=== PATIENT | male | born 1960 | race Caucasian/White ===

== ENCOUNTER 2020-04-25 10:10 | Outpatient (CLI) | payer MEDICAID | END 2020-04-25 10:11 | disposition short-term general hospital (02) | LOC: EMS 10:10 | PROVIDERS: ATTEND Surgery | DX: R07.89 Other chest pain (principal); R06.02 Shortness of breath ==

== ENCOUNTER 2020-05-14 17:13 | Outpatient (CLI) | payer MEDICAID | END 2020-05-14 17:14 | disposition critical access hospital (66) | LOC: EMS 17:13 | PROVIDERS: ATTEND Surgery | DX: R06.00 Dyspnea, unspecified (principal) | CPT/HCPCS: A0425; A0427; A0999 ==

== ENCOUNTER 2020-05-14 17:35 | Inpatient (IN) | payer MEDICAID ==
[2020-05-14 18:38] LABS: BASOPHILS # (AUTO) 0.1 10^3/uL (0.0-0.1); BASOPHILS % (AUTO) 1.3 %; EOSINOPHILS # (AUTO) 0.1 10^3/uL (0.0-0.7); EOSINOPHILS % (AUTO) 2.6 %; HGB - HEMOGLOBIN 13.2 g/dL (14.0-18.0); MEAN CORPUSCULAR HEMOGLOBIN 25.7 pg (27.0-31.0); MEAN CORPUSCULAR HGB CONC 28.5 g/dL (32.0-36.0); MEAN CORPUSCULAR VOLUME 90.1 fL (80.0-94.0); MEAN PLATELET VOLUME 11.2 fL (7.4-11.4); MONOCYTES # (AUTO) 0.2 10^3/uL (0.0-1.0); MONOCYTES % (AUTO) 4.3 %; NEUTROPHILS # (AUTO) 3.9 10^3/uL (1.5-6.6); NEUTROPHILS % (AUTO) 72.6 %; PLT - PLATELET COUNT 151 10^3/uL (130-450); RED BLOOD COUNT 5.14 10^6/uL (4.70-6.10); RED CELL DISTRIBUTION WIDTH 18.2 % (12.0-15.0); WHITE BLOOD COUNT 5.4 x10^3/uL (4.8-10.8)
--- NOTE | 2020-05-14 18:57 | XRAY Report ---
PROCEDURE: Chest 1 View X-Ray INDICATIONS: Chest Pain TECHNIQUE: One view of the chest was acquired. COMPARISON: None FINDINGS: Surgical changes and devices: None. Lungs and pleura: No definite focal infiltrate. Mild pulmonary vascular congestion is noted. No gross pneumothorax. Small right pleural effusion is likely present. Mediastinum: Mediastinal contours appear normal. Heart size is enlarged. Bones and chest wall: No suspicious bony lesions. Overlying soft tissues appear unremarkable. IMPRESSION: Cardiomegaly, mild congestion and small right pleural effusion. No definite focal infiltrate. No maya s pneumothorax. Reviewed by: Virgil Cortez MD on 05/14/2020 6:56 PM PST Approved by: Virgil Cortez MD on 05/14/2020 6:56 PM PST Station ID: [id number]
--- NOTE | 2020-05-14 19:02 | ED Physician Documentation ---
History of Present Illness - Stated complaint Stated Complaint: SOA - Chief complaint Chief Complaint: Resp - History obtained from History obtained from: Patient - History of Present Illness Timing: Today Pain level max: 0 Pain level now: 0 - Additonal information Additional information: 59-year-old male presents to the emergency department complaining of increased difficulty breathing over the past few days. States he was recently admitted to [facility] for congestive heart failure. States his legs have continued to be swollen. Does not utilize oxygen at home. Worse with movement, better with rest. Review of Systems Ten Systems: 10 systems reviewed and negative Constitutional: denies: Fever, Chills Nose: denies: Rhinorrhea / runny nose, Congestion Respiratory: denies: Cough, Wheezing GI: denies: Nausea, Vomiting, Diarrhea Skin: denies: Rash Musculoskeletal: denies: Neck pain, Back pain Neurologic: denies: Headache PD PAST MEDICAL HISTORY - Past Medical History Past Medical History: Yes Cardiovascular: Congestive heart failure, Hypertension - Present Medications Home Medications: Ambulatory Orders Medication Instructions Recorded Confirmed Clotrimazole 1% Cream [Lotrimin 1% 1 applic TOP BID 05/14/20 05/14/20 Cream] Dabigatran [Pradaxa] 150 mg PO BID 05/14/20 05/14/20 Metoprolol Succinate [Toprol Xl] 50 mg PO BID 05/14/20 05/14/20 Miconazole [Oravig] 50 mg BC BID 05/14/20 05/14/20 Pantoprazole [Protonix] 40 mg PO DAILY 05/14/20 05/14/20 Potassium Chloride 20 meq PO DAILY 05/14/20 05/14/20 Torsemide 20 mg PO DAILY 05/14/20 05/14/20 - Allergies Allergies/Adverse Reactions: Allergies Allergy/AdvReac Type Severity Reaction Status Date / Time No Known Drug Allergies Allergy Verified 05/14/20 17:54 - Living Situation Living Arrangement: reports: At home - Social History Does the pt smoke?: No Smoking Status: Never smoker Does the pt have substance abuse?: No - Family History Family history: reports: Non contributory PD ED PE NORMAL - Vitals Vital signs reviewed: Yes - General General: Alert and oriented X 3, No acute distress, Other (Super morbid obese male) - HEENT HEENT: PERRL, Moist mucous membranes - Neck Neck: Supple, no meningeal sign - Cardiac Cardiac: RRR, Strong equal pulses - Respiratory Respiratory: No respiratory distress, Clear bilaterally - Abdomen Abdomen: Soft, Non tender, Non distended - Derm Derm: Warm and dry - Extremities Extremities: Other (2+ bilateral pitting edema. Purple-colored extremities. Scaling skin.) - Neuro Neuro: Alert and oriented X 3 - Psych Psych: Normal mood, Normal affect Results - Vitals Vitals: Vital Signs - 24 hr 05/14/20 05/14/20 05/14/20 17:48 18:10 19:10 Temperature 35.9 C L Heart Rate 104 H 100 Respiratory 22 17 Rate Blood Pressure 138/110 H 149/113 H O2 Saturation 98 98 100 05/14/20 05/14/20 05/14/20 19:18 20:32 20:35 Temperature 36.8 C Heart Rate 95 120 H Respiratory 14 28 H Rate Blood Pressure 123/105 H O2 Saturation 98 60 L 77 L 05/14/20 05/14/20 20:40 20:53 Temperature 35.9 C L Heart Rate 101 H 90 Respiratory 15 14 Rate Blood Pressure 140/86 H 110/94 H O2 Saturation 94 94 Oxygen O2 Source Nasal cannula Oxygen Flow Rate 4 - EKG (time done) 1831 Rate: Rate (enter#) (95) Rhythm: Atrial fibrillation [place]: Normal QRS: Normal Ischemia: Non specific changes - Labs Labs: Laboratory Tests 05/14/20 05/14/20 05/14/20 18:30 18:30 18:30 WBC 5.4 RBC 5.14 Hgb 13.2 L Hct 46.3 MCV 90.1 MCH 25.7 L MCHC 28.5 L RDW 18.2 H Plt Count 151 MPV 11.2 Neut # (Auto) 3.9 Lymph # (Auto) 1.0 L K[place] # (Auto) 0.2 Eos # (Auto) 0.1 Baso # (Auto) 0.1 Absolute Nucleated RBC 0.00 Nucleated RBC % 0.0 Manual Slide Review Indicated Platelet Estimate NORMAL (130-450,000) Platelet Morphology NORMAL APPEARANCE RBC Morph Micro Appear 2+ HYPOCHROMASIA Sodium 137 Potassium 4.1 Chloride 97 L Carbon Dioxide 27 Anion Gap 13.0 BUN 22 H Creatinine 1.7 H Estimated GFR (MDRD) 41 L Glucose 97 Calcium 8.7 Total Bilirubin 2.2 H AST 18 ALT 17 Alkaline Phosphatase 67 Troponin I High Sens 15.0 B-Natriuretic Peptide Total Protein 7.5 Albumin 3.6 Globulin 3.9 Albumin/Globulin Ratio 0.9 L Lipase 45 05/14/20 18:30 WBC RBC Hgb Hct MCV MCH MCHC RDW Plt Count MPV Neut # (Auto) Lymph # (Auto) K[place]haw # (Auto) Eos # (Auto) Baso # (Auto) Absolute Nucleated RBC Nucleated RBC % Manual Slide Review Platelet Estimate Platelet Morphology RBC Morph Micro Appear Sodium Potassium Chloride Carbon Dioxide Anion Gap BUN Creatinine Estimated GFR (MDRD) Glucose Calcium Total Bilirubin AST ALT Alkaline Phosphatase Troponin I High Sens B-Natriuretic Peptide 1401 H Total Protein Albumin Globulin Albumin/Globulin Ratio Lipase - Rads (name of study) Chest x-ray Radiology: Prelim report reviewed, EMP read contemporaneously, See rad report (Cardiomegaly, mild congestion and small right pleural effusion. No definite focal infiltrate. No gross pneumothorax) PD MEDICAL DECISION MAKING - ED course Complexity details: reviewed results, re-evaluated patient, considered differential, d/w patient, d/w specialty development consultant ED course: Patient is a 59-year-old male with a history of CHF who presents to the emergency department with worsening dyspnea tonight. Initially not hypoxic when he was just sitting in bed however we got him up to go to the bathroom, the patient took approximately 3 steps, leaned up against the wall out of breath, breathing heavily and his O2 sat immediately dropped down to 60. Patient was placed back in bed. We will admit him for further diuresis and further care. Old records are requested from [facility], not available yet at this time. Discussed the case with Dr. Still, hospitalist who accepts. This document was made in part using voice recognition software. While efforts are made to proofread this document, sound alike and grammatical errors may occur. Departure - Departure Disposition: 66 [facility] DC/Xfer Clinical Impression: Hypoxia, Cardiomegaly Congestive heart failure Qualifiers: Heart failure type: unspecified Heart failure chronicity: acute on chronic Qualified Code(s): I50.9 - Heart failure, unspecified Edema Qualifiers: Edema type: unspecified Qualified Code(s): R60.9 - Edema, unspecified Condition: Stable
[2020-05-14 19:42] LABS: ALBUMIN 3.6 g/dL (3.2-5.5); ALBUMIN/GLOBULIN RATIO 0.9 (1.0-2.2); BILIRUBIN,TOTAL 2.2 mg/dL (0.2-1.0); CALCIUM 8.7 mg/dL (8.5-10.3); CREATININE 1.7 mg/dL (0.6-1.2); PLATELET ESTIMATE, MANUAL NORMAL (130-450,000) (NORMAL); PLATELET MORPHOLOGY NORMAL APPEARANCE (NORMAL); TOTAL PROTEIN 7.5 g/dL (6.7-8.2)
[2020-05-14] MEDS ORDERED: FUROSEMIDE 40 MG/4 ML VIAL IVP STA (19:43)
[2020-05-14] MEDS ORDERED: ONDANSETRON 4 MG/2 ML VIAL IVP PRN (21:07)
[2020-05-14] MEDS ORDERED: ACETAMINOPHEN 325 MG TABLET PO PRN (21:07)
[2020-05-14] MEDS ORDERED: SODIUM CHLORIDE FLUSH 0.9% 10 ML SYRINGE IVP PRN (21:07)
[2020-05-14 22:30] LABS: C. PNEUMONIAE- RESP PCR PANEL NOT DETECTED
[2020-05-14] MEDS: METOPROLOL SUCCINATE 50 MG TABLET PO SCH (22:41)
[2020-05-14] MEDS ORDERED: NITROGLYCERIN 2% PASTE TOP SCH (23:45)
[2020-05-15] MEDS: SODIUM CHLORIDE FLUSH 0.9% 10 ML SYRINGE IVP SCH ×3 (00:10→16:33)
--- NOTE | 2020-05-15 02:45 | HISTORY & PHYSICAL EXAMINATION ---
DATE OF SERVICE: 05/14/2020 Physician: Sofia Still MD CHIEF COMPLAINT: Shortness of breath. HISTORY OF PRESENT ILLNESS: Mr. Dominguez is a chronically ill 59-year-old white male who has advanced CHF. The patient is a good historian and he tells me his ejection fraction is less than 10%. We do not have recent echocardiogram in our system. The patient reports that he was admitted to [facility] about two weeks ago and had a 4-day hospital stay; he was treated for CHF exacerbation. He received diuretics, diuresed well, and actually got over diuresed, developing worsening renal function and hypovolemia. Therefore, when he was discharged, he was released on less diuretic than his previous home dose was. The patient also reports that during this recent hospital stay, he did undergo echocardiogram. Besides congestive heart failure, he has history of atrial fibrillation. He takes metoprolol for rate control and he is therapeutically anticoagulated on Pradaxa. Regarding his renal function, he thinks he might have had chronic kidney disease, but does not know his baseline. Regarding the circumstances leading to hospital admission, the patient reported that after hospital discharge he was home for about a week and gradually developed dyspnea. He had difficulty lying flat and got more short of breath on minimal physical activity as well. His roommate and his daughter noticed during the daytime on 05/14/2020 that he appeared weak and short of breath, could not perform his usual physical activities. Therefore, they encouraged him to present to the ER. Upon presentation to the ER, he was found with CHF exacerbation. EKG showed atrial fibrillation, initially with heart rate of 120, subsequently decreased to 90. BNP was 1400. Troponin was negative. Creatinine was 1.7, unknown previous creatinine. Chest x-ray showed interstitial infiltrates consistent with pulmonary edema and there was cardiomegaly. At the ER, the patient received 40 mg of IV Lasix, after which he diuresed well; however, when he got up and tried to walk, his oxygen saturation dropped to the 60s. He continued to require supplemental oxygen. Therefore, he is getting admitted for CHF exacerbation/hypoxic respiratory failure. Notably, in the past he has not been oxygen dependent. PAST MEDICAL HISTORY 1. Congestive heart failure. Likely has systolic dysfunction and low ejection fraction. Recent echocardiogram is not available for review. 2. Hypertension. 3. Atrial fibrillation. 4. Therapeutically anticoagulated on Pradaxa. 5. Borderline diabetes. 6. Chronic kidney disease. 7. History of cerebral palsy. 8. Ichthyosis. OUTPATIENT MEDICATIONS: Medication list is being updated. Per the available record, the patient was on 1. Protonix. 2. Metoprolol. 3. Torsemide. 4. Potassium. 5. Pradaxa. SOCIAL HISTORY: The patient ambulates sometimes using a cane other times a walker. He has not been oxygen dependent. He is a nonsmoker. Has history of alcohol use only when he was in college. Does not have history of heavy drinking or regular alcohol use. He smokes marijuana occasionally, uses no other drugs. FAMILY HISTORY: Strongly positive for congestive heart failure. There is also history of ichthyosis. REVIEW OF SYMPTOMS: Please see pertinent positives listed above at history of present illness. On further interview, the patient did not report chest pain, denied fever, nausea, vomiting or abdominal pain. His lower extremities were swollen as before. Did not notice much change. Did not report change with his urine output. Did not check his weight. On exam, he was noted with discoloration of his lower extremities. He, however, denied claudication. He was noted with some left toe wounds and he did not remember suffering a trauma or bumping into any objects. A 12-system review was completed and there was no additional positive. PHYSICAL EXAMINATION VITAL SIGNS: Heart rate 90, temperature 36.2, blood pressure 140/100, respiratory rate 24, oxygen saturation 60% on room air, 94% on 6 liters nasal cannula. GENERAL: The patient is a well-developed, chronically ill-appearing male who was in obvious respiratory distress. He had to stop while he spoke and he could only speak in short sentences due to shortness of breath. LUNGS: Decreased air entry above the bases without wheezes or crackles. Increased work of breathing on minimal activity and increased respiratory rate in the mid 20s. CARDIOVASCULAR: S1, S2. Irregularly irregular. Distant heart sounds. No obvious murmur. LYMPHATIC: 3+ tight edema on the lower extremities with signs of venous stasis. SKIN: Lower extremities appear with discoloration secondary to stasis dermatitis, plus could be chronic vascular insufficiency. Toes are cold and pulses are not well palpable. In addition, full body appeared with chronic dry skin condition and scaling, consistent with ichthyosis. NEUROLOGIC: Alert, oriented, nonfocal. PSYCHIATRIC: Cooperative. ABDOMEN: Obese, large, distended abdomen without tenderness. Bowel tones hypoactive. MUSCULOSKELETAL: Wounds on the left foot on the third, fourth and fifth toes. The lower extremities appeared both with venous stasis-like changes plus likely with chronic vascular insufficiency. ASSESSMENT AND PLAN: In summary, patient is a 59-year-old chronically ill male who is getting admitted with congestive heart failure exacerbation secondary to recent change in his diuretics. ACTIVE ISSUES/PROBLEM BY PROBLEM 1. Hypoxic respiratory failure secondary to pulmonary edema and congestive heart failure exacerbation. ACS ruled out/troponin negative. Likely has underlying obesity hypoventilation. PNA/COPD/PE less likely on clinical ground. 2. Atrial fibrillation with borderline rapid rate, improved. 3. Therapeutic anticoagulation on Pradaxa. 4. Congestive heart failure, likely with advanced severe systolic heart failure. Etiology of CHF seems idiopathic. Patient does not have history of substance abuse and does not report history of coronary artery disease. Most likely will be able to get more information when we obtain records from [facility]. 5. Renal insufficiency, likely chronic kidney disease, unknown creatinine baseline. 6. Left toe wounds. Patient likely suffered some injury, will need to be ruled out for foreign body. Could also have infectious problem, unknown how long he has been having wounds. 7. Chronic venous stasis. 8. On physical exam, appears with signs of chronic vascular insufficiency of the lower extremities, however, does not complain of claudication. With low ejection fraction/advanced heart failure, patient would likely not be a good candidate for vascular procedure. [facility], however, should have some records whether the vascular situation has been evaluated or addressed. 9. Ichthyosis, chronic. 10. Borderline diabetes, not on medication, reasonably good blood glucose control, with glucose below 100. 11. CODE STATUS discussed with the patient. He showed me his POLST form, which lists DO NOT RESUSCITATE status with limited additional interventions. PLAN AND ORDERS 1. The patient is getting admitted as inpatient. We will continue IV diuresis with Lasix. Follow electrolytes and order replacement as needed. 2. Request records from [facility] regarding recent echocardiogram and discharge summary. 3. X-ray of the left foot to rule out significant injury, foreign body or osteomyelitis. No indication to start antibiotic. Wound care, skin care. 4. Repeat one more troponin in the morning. 5. Continue therapeutic anticoagulation on Pradaxa. 6. Continue metoprolol for rate control. 7. To aid diuresis, nitrate will be added depending on the blood pressure. 8. DO NOT RESUSCITATE. 9. Deep venous thrombosis prophylaxis not needed as the patient is therapeutically anticoagulated. 10. Telemetry monitoring. 11. Further plan will depend on the clinical course. 12. Regarding vascular evaluation, the patient should be referred to outpatient followup. 13. If hypoxia does not improve on continued diuresis VQ scan to r/o PE can be considered. Probability of PE is less on therapeutic anticoagulation, however due to leg swelling, immobility/recent hospitalization there is still thrombembolic risk. ATTESTATION: I certify that this patient meets inpatient criteria due to hypoxia and CHF exacerbation, will require more than 2 midnights hospital stay. Subsequently, the reasonable expectation is that the patient gets discharged or transferred to another facility within 96 hours. Time spent with the care of this patient is 65 minutes. TD: 05/14/2020 23:50 MARTHA
[2020-05-15 05:14] LABS: PT - PROTHROMBIN TIME 21.2 secs (9.9-12.6)
[2020-05-15 05:23] LABS: CALCIUM 8.6 mg/dL (8.5-10.3); CREATININE 1.7 mg/dL (0.6-1.2); MAGNESIUM 2.1 mg/dL (1.7-2.8)
--- NOTE | 2020-05-15 08:33 | PROVIDER PROGRESS NOTE ---
Subjective - Prog Note Date Prog Note Date: 05/15/20 Prog Note Time: 08:31 - Subjective Subjective: tired, can't get energy to sit up. but is without orthopnea as he lays in bed on one pillow. getting ready for breakfast. sob but no cp, palpitations. Not much better than on admission. Current Medications - Current Medications Current Medications: Active Medications Acetaminophen (Acetaminophen 325 Mg Tablet) 650 mg PO Q4HR PRN PRN Reason: Pain 1 to 4 Last Admin: 05/15/20 03:02 Dose: 650 mg Documented by: Clotrimazole (Clotrimazole 1% Cream 15 Gm Tube) 1 applic TOP BID [facility] Dabigatran (Dabigatran 75 Mg Capsule) 150 mg PO BID [facility] Furosemide (Furosemide 40 Mg/4 Ml Vial) 60 mg IVP BID [facility] Metoprolol Succinate (Metoprolol Succinate 50 Mg Tablet) 50 mg PO BID [facility] Last Admin: 05/14/20 22:41 Dose: 50 mg Documented by: Ondansetron HCl (Ondansetron 4 Mg/2 Ml Vial) 4 mg IVP Q6HR PRN PRN Reason: Nausea / Vomiting Pantoprazole Sodium (Pantoprazole 40 Mg Tablet) 40 mg PO DAILY [facility] Sodium Chloride (Sodium Chloride Flush 0.9% 10 Ml Syringe) 10 ml IVP PRN PRN PRN Reason: NEEDED PER PROVIDER ORDERS Sodium Chloride (Sodium Chloride Flush 0.9% 10 Ml Syringe) 10 ml IVP 0100,0900,1700 [facility] Last Admin: 05/15/20 00:10 Dose: 10 ml Documented by: Clotrimazole 1% Cream [Lotrimin 1% Cream] 1 applic TOP BID 05/14/20 Dabigatran [Pradaxa] 150 mg PO BID 05/14/20 Metoprolol Succinate [Toprol Xl] 50 mg PO BID 05/14/20 Miconazole [Oravig] 50 mg BC BID 05/14/20 Pantoprazole [Protonix] 40 mg PO DAILY 05/14/20 Potassium Chloride 20 meq PO DAILY 05/14/20 Torsemide 20 mg PO DAILY 05/14/20 Objective - Vital Signs/Intake & Output Reviewed Vital Signs: Yes Vital Signs: Vital Signs x48h Temp Pulse Pulse Resp BP Pulse Ox 05/15/20 05:00 36.5 C 79 12 114/73 100 05/15/20 04:18 37.4 C 61 20 93 05/15/20 02:41 20 97 05/15/20 01:15 20 100 Intake & Output: Intake & Output 05/12/20 05/13/20 05/14/20 05/15/20 23:59 23:59 23:59 23:59 Intake Total 15 1000 Output Total 500 800 Balance -485 200 - Objective General Appearance: positive: Alert, Other (5'6" short statured, 152 kg round gentleman, disheveled, looks much, much older than stated age) Eyes Bilateral: positive: PERRL, EOMI ENT: positive: Dry mucous membranes, Other (poor dentition) Neck: positive: Other (can't see neck for JVD). negative: Stiff neck Respiratory: positive: No respiratory distress, Other (diffusely quiet and can barely hear breath sounds, dull bases, no tachypnea or use of acessory muscles). negative: Wheezes, Rales, Rhonchi Cardiovascular: positive: Regular rate & rhythm. negative: Gallop/S4, Friction rub Abdomen: positive: Non-tender, Nml bowel sounds, No distention, Other (large, large panus). negative: Guarding, Rebound Skin: positive: Warm, Dry, Pallor, Other (Severe ichthyosis of the distal extremities) Extremities: positive: Full ROM, Pedal edema Neurologic/Psychiatric: positive: Oriented x3, CN's nml (2-12), Motor nml (but generalized weakness) - Lab Results Fish Bones: 05/14/20 18:30 05/15/20 04:48 Other Labs: Lab Results x24hrs 05/15/20 05/15/20 05/15/20 Range/Units 04:48 04:48 04:48 WBC (4.8-10.8) x10^3/uL RBC (4.70-6.10) 10^6/uL Hgb (14.0-18.0) g/dL Hct (42.0-52.0) % MCV (80.0-94.0) fL MCH (27.0-31.0) pg MCHC (32.0-36.0) g/dL RDW (12.0-15.0) % Plt Count (130-450) 10^3/uL MPV (7.4-11.4) fL Neut # (Auto) (1.5-6.6) 10^3/uL Lymph # (Auto) (1.5-3.5) 10^3/uL Gilliam # (Auto) (0.0-1.0) 10^3/uL Eos # (Auto) (0.0-0.7) 10^3/uL Baso # (Auto) (0.0-0.1) 10^3/uL Absolute Nucleated RBC x10^3/uL Nucleated RBC % /100WBC Manual Slide Review Platelet Estimate (NORMAL) Platelet Morphology (NORMAL) RBC Morph Micro Appear (NORMAL) ESR (0-20) mm/Hr PT 21.2 H (9.9-12.6) secs INR 2.0 H (0.8-1.2) Sodium 138 (135-145) mmol/L Potassium 4.1 (3.5-5.0) mmol/L Chloride 103 (101-111) mmol/L Carbon Dioxide 26 (21-32) mmol/L Anion Gap 9.0 (6-13) BUN 25 H (6-20) mg/dL Creatinine 1.7 H (0.6-1.2) mg/dL Estimated GFR (MDRD) 41 L (>89) Glucose 69 L (70-100) mg/dL Calcium 8.6 (8.5-10.3) mg/dL Magnesium 2.1 (1.7-2.8) mg/dL Total Bilirubin (0.2-1.0) mg/dL AST (10-42) IU/L ALT (10-60) IU/L Alkaline Phosphatase (42-121) IU/L Troponin I High Sens 32.5 H* (2.3-19.7) ng/L B-Natriuretic Peptide (5-100) pg/mL Total Protein (6.7-8.2) g/dL Albumin (3.2-5.5) g/dL Globulin (2.1-4.2) g/dL Albumin/Globulin Ratio (1.0-2.2) Lipase (22-51) U/L Nasal Adenovirus (PCR) Nasal B. parapertussis DNA (PCR) Nasal Coronavir 229E PCR Nasal Coronavir HKU1 PCR Nasal Coronavir NL63 PCR Nasal Coronavir OC43 PCR Nasal Enterovir/Rhinovir PCR Nasal Influenza B PCR Nasal Influenza A PCR Nasal Parainfluen 1 PCR Nasal Parainfluen 2 PCR Nasal Parainfluen 3 PCR Nasal Parainfluen 4 PCR Nasal RSV (PCR) Nasal B.pertussis DNA PCR Nasal C.pneumoniae (PCR) Mike Human Metapneumo PCR Nasal M.pneumoniae (PCR) Nasal SARS-CoV-2 (PCR) 05/14/20 05/14/20 05/14/20 Range/Units 21:25 18:30 18:30 WBC (4.8-10.8) x10^3/uL RBC (4.70-6.10) 10^6/uL Hgb (14.0-18.0) g/dL Hct (42.0-52.0) % MCV (80.0-94.0) fL MCH (27.0-31.0) pg MCHC (32.0-36.0) g/dL RDW (12.0-15.0) % Plt Count (130-450) 10^3/uL MPV (7.4-11.4) fL Neut # (Auto) (1.5-6.6) 10^3/uL Lymph # (Auto) (1.5-3.5) 10^3/uL Gilliam # (Auto) (0.0-1.0) 10^3/uL Eos # (Auto) (0.0-0.7) 10^3/uL Baso # (Auto) (0.0-0.1) 10^3/uL Absolute Nucleated RBC x10^3/uL Nucleated RBC % /100WBC Manual Slide Review Platelet Estimate (NORMAL) Platelet Morphology (NORMAL) RBC Morph Micro Appear (NORMAL) ESR 4 (0-20) mm/Hr PT (9.9-12.6) secs INR (0.8-1.2) Sodium (135-145) mmol/L Potassium (3.5-5.0) mmol/L Chloride (101-111) mmol/L Carbon Dioxide (21-32) mmol/L Anion Gap (6-13) BUN (6-20) mg/dL Creatinine (0.6-1.2) mg/dL Estimated GFR (MDRD) (>89) Glucose (70-100) mg/dL Calcium (8.5-10.3) mg/dL Magnesium (1.7-2.8) mg/dL Total Bilirubin (0.2-1.0) mg/dL AST (10-42) IU/L ALT (10-60) IU/L Alkaline Phosphatase (42-121) IU/L Troponin I High Sens (2.3-19.7) ng/L B-Natriuretic Peptide 1401 H (5-100) pg/mL Total Protein (6.7-8.2) g/dL Albumin (3.2-5.5) g/dL Globulin (2.1-4.2) g/dL Albumin/Globulin Ratio (1.0-2.2) Lipase (22-51) U/L Nasal Adenovirus (PCR) NOT DETECTED Nasal B. parapertussis DNA (PCR) NOT DETECTED Nasal Coronavir 229E PCR NOT DETECTED Nasal Coronavir HKU1 PCR NOT DETECTED Nasal Coronavir NL63 PCR NOT DETECTED Nasal Coronavir OC43 PCR NOT DETECTED Nasal Enterovir/Rhinovir PCR NOT DETECTED Nasal Influenza B PCR NOT DETECTED Nasal Influenza A PCR NOT DETECTED Nasal Parainfluen 1 PCR NOT DETECTED Nasal Parainfluen 2 PCR NOT DETECTED Nasal Parainfluen 3 PCR NOT DETECTED Nasal Parainfluen 4 PCR NOT DETECTED Nasal RSV (PCR) NOT DETECTED Nasal B.pertussis DNA PCR NOT DETECTED Nasal C.pneumoniae (PCR) NOT DETECTED Mike Human Metapneumo PCR NOT DETECTED Nasal M.pneumoniae (PCR) NOT DETECTED Nasal SARS-CoV-2 (PCR) NOT DETECTED 05/14/20 05/14/20 05/14/20 Range/Units 18:30 18:30 18:30 WBC 5.4 (4.8-10.8) x10^3/uL RBC 5.14 (4.70-6.10) 10^6/uL Hgb 13.2 L (14.0-18.0) g/dL Hct 46.3 (42.0-52.0) % MCV 90.1 (80.0-94.0) fL MCH 25.7 L (27.0-31.0) pg MCHC 28.5 L (32.0-36.0) g/dL RDW 18.2 H (12.0-15.0) % Plt Count 151 (130-450) 10^3/uL MPV 11.2 (7.4-11.4) fL Neut # (Auto) 3.9 (1.5-6.6) 10^3/uL Lymph # (Auto) 1.0 L (1.5-3.5) 10^3/uL Gilliam # (Auto) 0.2 (0.0-1.0) 10^3/uL Eos # (Auto) 0.1 (0.0-0.7) 10^3/uL Baso # (Auto) 0.1 (0.0-0.1) 10^3/uL Absolute Nucleated RBC 0.00 x10^3/uL Nucleated RBC % 0.0 /100WBC Manual Slide Review Indicated Platelet Estimate NORMAL (130-450,000) (NORMAL) Platelet Morphology NORMAL APPEARANCE (NORMAL) RBC Morph Micro Appear 2+ HYPOCHROMASIA (NORMAL) ESR (0-20) mm/Hr PT (9.9-12.6) secs INR (0.8-1.2) Sodium 137 (135-145) mmol/L Potassium 4.1 (3.5-5.0) mmol/L Chloride 97 L (101-111) mmol/L Carbon Dioxide 27 (21-32) mmol/L Anion Gap 13.0 (6-13) BUN 22 H (6-20) mg/dL Creatinine 1.7 H (0.6-1.2) mg/dL Estimated GFR (MDRD) 41 L (>89) Glucose 97 (70-100) mg/dL Calcium 8.7 (8.5-10.3) mg/dL Magnesium (1.7-2.8) mg/dL Total Bilirubin 2.2 H (0.2-1.0) mg/dL AST 18 (10-42) IU/L ALT 17 (10-60) IU/L Alkaline Phosphatase 67 (42-121) IU/L Troponin I High Sens 15.0 (2.3-19.7) ng/L B-Natriuretic Peptide (5-100) pg/mL Total Protein 7.5 (6.7-8.2) g/dL Albumin 3.6 (3.2-5.5) g/dL Globulin 3.9 (2.1-4.2) g/dL Albumin/Globulin Ratio 0.9 L (1.0-2.2) Lipase 45 (22-51) U/L Nasal Adenovirus (PCR) Nasal B. parapertussis DNA (PCR) Nasal Coronavir 229E PCR Nasal Coronavir HKU1 PCR Nasal Coronavir NL63 PCR Nasal Coronavir OC43 PCR Nasal Enterovir/Rhinovir PCR Nasal Influenza B PCR Nasal Influenza A PCR Nasal Parainfluen 1 PCR Nasal Parainfluen 2 PCR Nasal Parainfluen 3 PCR Nasal Parainfluen 4 PCR Nasal RSV (PCR) Nasal B.pertussis DNA PCR Nasal C.pneumoniae (PCR) Mike Human Metapneumo PCR Nasal M.pneumoniae (PCR) Nasal SARS-CoV-2 (PCR) ABX Reporting Has patient been on IV antibiotics over the past 48 hours?: No Assessment/Plan - Problem List (1) Acute respiratory failure with hypoxia Impression: due to CHF and pulm edema. No pneumonia. continue to treat these causes and aim for nml sat on RA (2) Acute on chronic systolic (congestive) heart failure Impression: For decompensation. Current treatment is Lasix 60 mg intravenously twice daily, Toprol-XL 50 mg twice daily. At home he was on torsemide 20 mg daily. Between midnight and this morning he is -485 cc. Plan: Continue IV twice daily Lasix. Continue the metoprolol. Not on ALAYNA inhibitor. Will consider adding that in the next day or 2 if his blood pressure can take it. This morning he is stable at 114/73. Daily weights. Daily BNP Get discharge summary, echocardiogram, and cardiology consult record from [facility]. I have asked the DRIVER/MERCHANDISER to get those for us. (3) Atrial fibrillation with RVR Impression: So far his rate has been in the 60s to 70s for us. Appears to be well controlled. Also on Pradaxa. No change at this time. (4) Type 2 diabetes mellitus Impression: Glucose this morning was 69. He is not on sliding scale, not on any medications. We will just trend his fasting glucose in the morning. Check A1c tomorrow. Qualifiers: Diabetes mellitus intermediate designer insulin use: without intermediate designer use Diabetes mellitus complication status: without complication Qualified Code(s): E11.9 - Type 2 diabetes mellitus without complications (5) Chronic kidney disease Impression: Stable creatinine between admission and today. We will continue to monitor daily. Avoid nephrotoxic agents. Qualifiers: Chronic kidney disease stage: stage 3 (moderate)
[2020-05-15] MEDS: FUROSEMIDE 40 MG/4 ML VIAL IVP SCH ×2 (08:46→21:09)
[2020-05-15] MEDS: CLOTRIMAZOLE 1% CREAM 15 GM TUBE TOP SCH ×2 (08:48→21:10)
[2020-05-15] MEDS: PANTOPRAZOLE 40 MG TABLET PO SCH (08:49)
[2020-05-15] MEDS: METOPROLOL SUCCINATE 50 MG TABLET PO SCH ×2 (08:49→21:09)
[2020-05-15] MEDS: DABIGATRAN 75 MG CAPSULE PO SCH ×2 (08:49→21:10)
[2020-05-15] MEDS ORDERED: HEPARIN 5,000 UNIT/ML VIAL SUBQ SCH (09:00)
--- NOTE | 2020-05-15 09:20 | XRAY Report ---
PROCEDURE: Foot 3 View LT INDICATIONS: toe 2-5 wounds, r/o OM or FB TECHNIQUE: 5 views of the foot were acquired. COMPARISON: None. FINDINGS: Bones: No fractures or dislocations. No suspicious bony lesions. By this examination no osteomyeli tis or trauma is found. Soft tissues: No tibiotalar joint effusion. Achilles tendon appears normal. No foreign body seen, no gas in the soft tissues found. IMPRESSION: No evidence of osteomyelitis or foreign body. Incidental note is made of a small Achilles tendon and plantar fascia insertion spurring, which can be associated with focal tenderness but also often is as ymptomatic. Reviewed by: Rad Garcia MD on 05/15/2020 9:18 AM [facility] Approved by: Rad Garcia MD on 05/15/2020 9:18 AM [facility] Station ID: [id number]
--- NOTE | 2020-05-15 12:46 | PHARMACY PROGRESS NOTE ---
- Best Possible Medication History Admit Date and Time: 05/14/202106 Processed by: Pharmacy Medication History completed: Yes Patient Interview: Completed Secondary Source(s): Written medication list, Pharmacy records, Insurance records As the person ultimately responsible for medication therapy, providers are able to order a medication from an existing home medication list in [facility] via the "Reconcile Routine" prior to Confirmation of that medication by client support manager. Such practice is discouraged except when the physician, in their clinical judgment, deems that a medical need exists for a medication without regard to previous use. Per patient, he takes toresemide, pharmacy and insurance records show this has not been filled since January. Reviewed medication history with projection technicianHanna. Patient will need to be discharged on loop diuretic, torsemide or furosemide.
--- NOTE | 2020-05-15 16:52 | CONSULTATION NOTE ---
Palliative Care Consultation - Referral Referring Provider: Sharon Alejo MD Time of Visit: [id number] Referral setting: Hospitalized patient Referral Reason: Advanced CHF/Goals of Care - Information Sources Records reviewed: Previous records reviewed History/Review of Systems obtained from: Patient, Family (spoke with sister Jaleesa Garza) Exam limitations: Clinical condition (patient with anxiety/depression) - History of Present Illness Brief History of Present Illness: This is a 59-year-old gentleman who appears older than his stated age, who presents with advanced CHF. He has had a recent hospitalization at [facility], he reports it was for an exacerbation of CHF, and was discharged back home. Patient reports has had difficult course over the last several months, was originally diagnosed in 2011, as result of hemoptysis was given his CHF diagnosis. He reports many people in his family "CHF has been a killer", identifies aunts and cousins who have from CHF. Patient has not been followed on a regular basis by a dictaphone transcriber, and reports his only other health problems had been when he was born with cerebral palsy, spent his first 3 years of life and hospitals and with multiple surgeries. He reports other than being overweight, borderline diabetes, and ckd, has not had any other chronic health problems other than his skin issues, with diagnosis of ichthyosis. Patient reports he has been having worsening health, since September of this last year. He did end up with acute hospitalization in November. He describes a conversation, where he was told he was going to in 2 months, and had s uggested a "morphine drip". Patient reports this "scared that she had out of me", reports he is not ready to , though he does understand he is seriously ill though not to the extent at this point if his ejection fraction higher is 10% of what the implications of this are. He describes at time of discharge in November, he was homeless for 3 months, he most recently reunited with his sister who came to help from [place]. He is currently staying in a mobile home, with the room that she secured for him. He reports she is he is a nice polo. He has a van which he lived in for short period of time, but is not functioning. And describes significant symptoms of depression, and was quite tearful through most of our conversation regarding this. At this point in time his understanding, as he is going to "have surgery", this going to help with his heart. He does not understand exactly in the context of this what that might be, the hospitalist had offered an AICD or follow up for cardiac intervention, patient has had several runs of Vtach here, he would be open to further interventions that may improve his quality and as well as quantity of life. Medical/Surgical History - Past Medical History Cardiovascular: reports: Congestive heart failure, Hypertension Respiratory: reports: Shortness of breath Neuro: Cerebral palsy Endocrine/Autoimmune: reports: Type 2 diabetes : reports: Indwelling catheter Psych: reports: Depression, Anxiety, Panic attacks Musculoskeletal: reports: Other (right leg / foot ortho problems secondary to cerebral palsy) MRSA Hx?: No - Past Surgical History Ortho: reports: Other (multiple ortho surgeries) - Substance History Use: Uses substance without health or social issues: NONE Social History - Living Situation Living arrangement: Other (rents a room in mobile home) Support System: Patient reports has worked as a SOLAR PHOTOVOLTAIC ELECTRICIAN for many years, 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 He has mostly worked regional ehs manager previously, has worked with adults, and has also provided support for hospice patients. He reports that in September he was put on administrative leave, so is currently at this time given the severity of his illness, pursuing Social Security disability. He has always worked most of his life, but has been more challenging for the last year and a half with his worsening CHF, and more difficulty walking. It does sound like he has had unstable CHF with multiple hospitalizations, and challenging given his living situation for follow through and follow-up.He and his sister had been previously estranged, she is in [place], trying to help him navigate and is worried about his current situation. She is from [place], but cannot bring him home to live with her. Family History - Family History Family History: Mother: , Father: Family History Comment/Other: reports strong history of CHF; and ichthyosis Medications/Allergies - Medications Active Medication List: Active Medications Acetaminophen (Acetaminophen 325 Mg Tablet) 650 mg PO Q4HR PRN PRN Reason: Pain 1 to 4 Last Admin: 05/15/20 03:02 Dose: 650 mg Documented by: Clotrimazole (Clotrimazole 1% Cream 15 Gm Tube) 1 applic TOP BID ALEX Last Admin: 05/15/20 08:48 Dose: 1 applic Documented by: Dabigatran (Dabigatran 75 Mg Capsule) 150 mg PO BID [facility] Last Admin: 05/15/20 08:49 Dose: 150 mg Documented by: Furosemide (Furosemide 40 Mg/4 Ml Vial) 60 mg IVP BID [facility] Last Admin: 05/15/20 08:46 Dose: 60 mg Documented by: Metoprolol Succinate (Metoprolol Succinate 50 Mg Tablet) 50 mg PO BID [facility] Last Admin: 05/15/20 08:49 Dose: 50 mg Documented by: Ondansetron HCl (Ondansetron 4 Mg/2 Ml Vial) 4 mg IVP Q6HR PRN PRN Reason: Nausea / Vomiting Pantoprazole Sodium (Pantoprazole 40 Mg Tablet) 40 mg PO DAILY [facility] Last Admin: 05/15/20 08:49 Dose: 40 mg Documented by: Sodium Chloride (Sodium Chloride Flush 0.9% 10 Ml Syringe) 10 ml IVP PRN PRN PRN Reason: NEEDED PER PROVIDER ORDERS Sodium Chloride (Sodium Chloride Flush 0.9% 10 Ml Syringe) 10 ml IVP 0100,0900,1700 [facility] Last Admin: 05/15/20 16:33 Dose: 10 ml Documented by: Clotrimazole 1% Cream [Lotrimin 1% Cream] 1 applic TOP BID 05/14/20 Dabigatran [Pradaxa] 150 mg PO BID 05/14/20 Metoprolol Succinate [Toprol Xl] 50 mg PO BID 05/14/20 Miconazole [Oravig] 50 mg BC BID 05/14/20 Pantoprazole [Protonix] 40 mg PO DAILY 05/14/20 Potassium Chloride 10 meq PO DAILY 05/15/20 - Allergies Allergies/Adverse Reactions: Allergies Allergy/AdvReac Type Severity Reaction Status Date / Time No Known Drug Allergies Allergy Verified 05/14/20 17:54 Review of Systems - Constitutional Constitutional: reports: Fatigue (worsening), Poor appetite. denies: Fever, Chills - Eyes Eyes: reports: Vision loss - Ears, Nose & Throat Ears, Nose & Throat: reports: Dry mouth - Cardiovascular Cardiovascular: reports: Irregular heart rate, Lightheadedness, Exertional dyspnea, Decr. exercise tolerance. denies: Chest pain - Respiratory Respiratory: reports: Cough (dry), Wheezing, SOB at rest, SOB with exertion - Gastrointestinal Gastrointestinal: reports: Early satiety, Good appetite - Genitourinary Genitourinary: reports: Other (currently with indwelling catheter) - Musculoskeletal Musculoskeletal: reports: Stiffness, Muscle weakness - Integumentary Integumentary: reports: Dryness, Other (severe plaques /dryness from skin dx) - Neurological Neurological: reports: General weakness, Memory problems (mild) - Psychiatric Psychiatric: reports: Depression, Anxiety - Endocrine Endocrine: reports: Diabetes type 2 - All Other Systems All Other Systems: reports: Reviewed and negative Physical Exam - Vital Signs Vital Signs: Vital Signs x48h Temp Pulse Resp BP Pulse Ox 05/15/20 12:18 36.7 C 87 20 130/68 97 05/15/20 08:57 36.5 C 91 22 104/67 100 - Physical Exam General Appearance: positive: Moderate distress, Anxious ENT: negative: Pharyngeal erythema Neck: positive: Trachea midline Respiratory: positive: Wheezes. negative: No respiratory distress (respiratory effort with any conversation) Abdomen: positive: Obese Skin: positive: Pallor, Dryness, Other (plaquest; thickened fungal nails) Extremities: positive: No pedal edema, Other (no observed) Neurologic/Psychiatric: positive: Oriented x3, Weakness, Depressed mood/affect, Flat affect Palliative Care - POLST Patient has POLST: Yes POLST Status: DNR, Selective Treatment Pain: No pain Tiredness/Fatigue: Moderate (4-6) Drowsiness/Sedation: Mild (1-3) Nausea: None Anorexia: Mild (1-3) Dyspnea: Severe (7-10) Depression: Severe (7-10) Anxiety: Severe (7-10) Feelings of wellbeing/Perceived Quality of Life: Poor, Worsening Sleep: Variable sleep pattern (has always worked nights) Performance Status: Patient reports decreasing functional decline, fluctuating ability to walk for a year and a half. Reports more severe since discharge from [facility] few weeks ago. Sister reports patient needs maximum assistance for any kind of ADLs, cueing for walking, is high fall risk. Patient has been ambulatory prior to his most recent exacerbation. - Palliative Care Discussion: Patient does have some understanding that he has serious illness, reports "they scared that she had out of me" when told had 2 months to live, this was back in November, had offered him comfort and a "morphine drip". He reports he is not ready to yet, would still accept interventions to improve his quality and quantity of life, as far as if he was offered further surgery or cardiac interventions. Because of his homeless situation, had not been able to follow- up with Dr. Roberts, and it does sound like he has been fairly unstable. Patient reports he really does not know "what to think", he was barely briefly, but has no other support than his sister whom he recently reunited with. He has not followed through on any of his advance care planning documents other than his POLST, which does have DN AR and limited interventions. We did review given the seriousness of his illness, this is still appropriate, and would not be surprised if he continues to decline in health. Patient's goals slow are to maximize what he can at this point in time, though understands he may have limited options after our discussion. He reports he did watch his mother , she actually here would be general, but it was a long drawn out process over 8 days, and finds this quite unacceptable. He has had other experiences though with patient's in the community, and has seen that this can be a support part of the continuum though he does not feel he is ready for this yet. Did follow-up with his Sister Jaleesa Garza [phone] with his permission. Reports they have not finished any of his advance care planning documents, and do not have a DPOA. Patient identified her as appropriate person, will complete this documentation tomorrow. She feels his current situation is not supportive of him getting better, and is hoping can be transitioned to a SNF to get stable and stronger. Results - Lab Results Lab results reviewed: Yes Fish Bones: 05/14/20 18:30 05/15/20 04:48 Lab and Imaging Results: Lab Results x24hrs 05/15/20 05/15/20 05/15/20 Range/Units 10:01 04:48 04:48 WBC (4.8-10.8) x10^3/uL RBC (4.70-6.10) 10^6/uL Hgb (14.0-18.0) g/dL Hct (42.0-52.0) % MCV (80.0-94.0) fL MCH (27.0-31.0) pg MCHC (32.0-36.0) g/dL RDW (12.0-15.0) % Plt Count (130-450) 10^3/uL MPV (7.4-11.4) fL Neut # (Auto) (1.5-6.6) 10^3/uL Lymph # (Auto) (1.5-3.5) 10^3/uL Moffat # (Auto) (0.0-1.0) 10^3/uL Eos # (Auto) (0.0-0.7) 10^3/uL Baso # (Auto) (0.0-0.1) 10^3/uL Absolute Nucleated RBC x10^3/uL Nucleated RBC % /100WBC Manual Slide Review Platelet Estimate (NORMAL) Platelet Morphology (NORMAL) RBC Morph Micro Appear (NORMAL) ESR (0-20) mm/Hr PT 21.2 H (9.9-12.6) secs INR 2.0 H (0.8-1.2) Sodium (135-145) mmol/L Potassium (3.5-5.0) mmol/L Chloride (101-111) mmol/L Carbon Dioxide (21-32) mmol/L Anion Gap (6-13) BUN (6-20) mg/dL Creatinine (0.6-1.2) mg/dL Estimated GFR (MDRD) (>89) Glucose (70-100) mg/dL POC Whole Bld Glucose (70 - 100) mg/dL Calcium (8.5-10.3) mg/dL Magnesium (1.7-2.8) mg/dL Total Bilirubin (0.2-1.0) mg/dL AST (10-42) IU/L ALT (10-60) IU/L Alkaline Phosphatase (42-121) IU/L Troponin I High Sens 37.7 H* 32.5 H* (2.3-19.7) ng/L B-Natriuretic Peptide (5-100) pg/mL Total Protein (6.7-8.2) g/dL Albumin (3.2-5.5) g/dL Globulin (2.1-4.2) g/dL Albumin/Globulin Ratio (1.0-2.2) Lipase (22-51) U/L Nasal Adenovirus (PCR) Nasal B. parapertussis DNA (PCR) Nasal Coronavir 229E PCR Nasal Coronavir HKU1 PCR Nasal Coronavir NL63 PCR Nasal Coronavir OC43 PCR Nasal Enterovir/Rhinovir PCR Nasal Influenza B PCR Nasal Influenza A PCR Nasal Parainfluen 1 PCR Nasal Parainfluen 2 PCR Nasal Parainfluen 3 PCR Nasal Parainfluen 4 PCR Nasal RSV (PCR) Nasal B.pertussis DNA PCR Nasal C.pneumoniae (PCR) Mike Human Metapneumo PCR Nasal M.pneumoniae (PCR) Nasal SARS-CoV-2 (PCR) 05/15/20 05/14/20 05/14/20 Range/Units 04:48 21:25 18:30 WBC (4.8-10.8) x10^3/uL RBC (4.70-6.10) 10^6/uL Hgb (14.0-18.0) g/dL Hct (42.0-52.0) % MCV (80.0-94.0) fL MCH (27.0-31.0) pg MCHC (32.0-36.0) g/dL RDW (12.0-15.0) % Plt Count (130-450) 10^3/uL MPV (7.4-11.4) fL Neut # (Auto) (1.5-6.6) 10^3/uL Lymph # (Auto) (1.5-3.5) 10^3/uL Moffat # (Auto) (0.0-1.0) 10^3/uL Eos # (Auto) (0.0-0.7) 10^3/uL Baso # (Auto) (0.0-0.1) 10^3/uL Absolute Nucleated RBC x10^3/uL Nucleated RBC % /100WBC Manual Slide Review Platelet Estimate (NORMAL) Platelet Morphology (NORMAL) RBC Morph Micro Appear (NORMAL) ESR 4 (0-20) mm/Hr PT (9.9-12.6) secs INR (0.8-1.2) Sodium 138 (135-145) mmol/L Potassium 4.1 (3.5-5.0) mmol/L Chloride 103 (101-111) mmol/L Carbon Dioxide 26 (21-32) mmol/L Anion Gap 9.0 (6-13) BUN 25 H (6-20) mg/dL Creatinine 1.7 H (0.6-1.2) mg/dL Estimated GFR (MDRD) 41 L (>89) Glucose 69 L (70-100) mg/dL POC Whole Bld Glucose (70 - 100) mg/dL Calcium 8.6 (8.5-10.3) mg/dL Magnesium 2.1 (1.7-2.8) mg/dL Total Bilirubin (0.2-1.0) mg/dL AST (10-42) IU/L ALT (10-60) IU/L Alkaline Phosphatase (42-121) IU/L Troponin I High Sens (2.3-19.7) ng/L B-Natriuretic Peptide (5-100) pg/mL Total Protein (6.7-8.2) g/dL Albumin (3.2-5.5) g/dL Globulin (2.1-4.2) g/dL Albumin/Globulin Ratio (1.0-2.2) Lipase (22-51) U/L Nasal Adenovirus (PCR) NOT DETECTED Nasal B. parapertussis DNA (PCR) NOT DETECTED Nasal Coronavir 229E PCR NOT DETECTED Nasal Coronavir HKU1 PCR NOT DETECTED Nasal Coronavir NL63 PCR NOT DETECTED Nasal Coronavir OC43 PCR NOT DETECTED Nasal Enterovir/Rhinovir PCR NOT DETECTED Nasal Influenza B PCR NOT DETECTED Nasal Influenza A PCR NOT DETECTED Nasal Parainfluen 1 PCR NOT DETECTED Nasal Parainfluen 2 PCR NOT DETECTED Nasal Parainfluen 3 PCR NOT DETECTED Nasal Parainfluen 4 PCR NOT DETECTED Nasal RSV (PCR) NOT DETECTED Nasal B.pertussis DNA PCR NOT DETECTED Nasal C.pneumoniae (PCR) NOT DETECTED Mike Human Metapneumo PCR NOT DETECTED Nasal M.pneumoniae (PCR) NOT DETECTED Nasal SARS-CoV-2 (PCR) NOT DETECTED 05/14/20 05/14/20 05/14/20 Range/Units 18:30 18:30 18:30 WBC (4.8-10.8) x10^3/uL RBC (4.70-6.10) 10^6/uL Hgb (14.0-18.0) g/dL Hct (42.0-52.0) % MCV (80.0-94.0) fL MCH (27.0-31.0) pg MCHC (32.0-36.0) g/dL RDW (12.0-15.0) % Plt Count (130-450) 10^3/uL MPV (7.4-11.4) fL Neut # (Auto) (1.5-6.6) 10^3/uL Lymph # (Auto) (1.5-3.5) 10^3/uL Moffat # (Auto) (0.0-1.0) 10^3/uL Eos # (Auto) (0.0-0.7) 10^3/uL Baso # (Auto) (0.0-0.1) 10^3/uL Absolute Nucleated RBC x10^3/uL Nucleated RBC % /100WBC Manual Slide Review Platelet Estimate (NORMAL) Platelet Morphology (NORMAL) RBC Morph Micro Appear (NORMAL) ESR (0-20) mm/Hr PT (9.9-12.6) secs INR (0.8-1.2) Sodium 137 (135-145) mmol/L Potassium 4.1 (3.5-5.0) mmol/L Chloride 97 L (101-111) mmol/L Carbon Dioxide 27 (21-32) mmol/L Anion Gap 13.0 (6-13) BUN 22 H (6-20) mg/dL Creatinine 1.7 H (0.6-1.2) mg/dL Estimated GFR (MDRD) 41 L (>89) Glucose 97 (70-100) mg/dL POC Whole Bld Glucose (70 - 100) mg/dL Calcium 8.7 (8.5-10.3) mg/dL Magnesium (1.7-2.8) mg/dL Total Bilirubin 2.2 H (0.2-1.0) mg/dL AST 18 (10-42) IU/L ALT 17 (10-60) IU/L Alkaline Phosphatase 67 (42-121) IU/L Troponin I High Sens 15.0 (2.3-19.7) ng/L B-Natriuretic Peptide 1401 H (5-100) pg/mL Total Protein 7.5 (6.7-8.2) g/dL Albumin 3.6 (3.2-5.5) g/dL Globulin 3.9 (2.1-4.2) g/dL Albumin/Globulin Ratio 0.9 L (1.0-2.2) Lipase 45 (22-51) U/L Nasal Adenovirus (PCR) Nasal B. parapertussis DNA (PCR) Nasal Coronavir 229E PCR Nasal Coronavir HKU1 PCR Nasal Coronavir NL63 PCR Nasal Coronavir OC43 PCR Nasal Enterovir/Rhinovir PCR Nasal Influenza B PCR Nasal Influenza A PCR Nasal Parainfluen 1 PCR Nasal Parainfluen 2 PCR Nasal Parainfluen 3 PCR Nasal Parainfluen 4 PCR Nasal RSV (PCR) Nasal B.pertussis DNA PCR Nasal C.pneumoniae (PCR) Mike Human Metapneumo PCR Nasal M.pneumoniae (PCR) Nasal SARS-CoV-2 (PCR) 05/14/20 05/14/20 Range/Units 18:30 18:00 WBC 5.4 (4.8-10.8) x10^3/uL RBC 5.14 (4.70-6.10) 10^6/uL Hgb 13.2 L (14.0-18.0) g/dL Hct 46.3 (42.0-52.0) % MCV 90.1 (80.0-94.0) fL MCH 25.7 L (27.0-31.0) pg MCHC 28.5 L (32.0-36.0) g/dL RDW 18.2 H (12.0-15.0) % Plt Count 151 (130-450) 10^3/uL MPV 11.2 (7.4-11.4) fL Neut # (Auto) 3.9 (1.5-6.6) 10^3/uL Lymph # (Auto) 1.0 L (1.5-3.5) 10^3/uL Moffat # (Auto) 0.2 (0.0-1.0) 10^3/uL Eos # (Auto) 0.1 (0.0-0.7) 10^3/uL Baso # (Auto) 0.1 (0.0-0.1) 10^3/uL Absolute Nucleated RBC 0.00 x10^3/uL Nucleated RBC % 0.0 /100WBC Manual Slide Review Indicated Platelet Estimate NORMAL (130-450,000) (NORMAL) Platelet Morphology NORMAL APPEARANCE (NORMAL) RBC Morph Micro Appear 2+ HYPOCHROMASIA (NORMAL) ESR (0-20) mm/Hr PT (9.9-12.6) secs INR (0.8-1.2) Sodium (135-145) mmol/L Potassium (3.5-5.0) mmol/L Chloride (101-111) mmol/L Carbon Dioxide (21-32) mmol/L Anion Gap (6-13) BUN (6-20) mg/dL Creatinine (0.6-1.2) mg/dL Estimated GFR (MDRD) (>89) Glucose (70-100) mg/dL POC Whole Bld Glucose 81 (70 - 100) mg/dL Calcium (8.5-10.3) mg/dL Magnesium (1.7-2.8) mg/dL Total Bilirubin (0.2-1.0) mg/dL AST (10-42) IU/L ALT (10-60) IU/L Alkaline Phosphatase (42-121) IU/L Troponin I High Sens (2.3-19.7) ng/L B-Natriuretic Peptide (5-100) pg/mL Total Protein (6.7-8.2) g/dL Albumin (3.2-5.5) g/dL Globulin (2.1-4.2) g/dL Albumin/Globulin Ratio (1.0-2.2) Lipase (22-51) U/L Nasal Adenovirus (PCR) Nasal B. parapertussis DNA (PCR) Nasal Coronavir 229E PCR Nasal Coronavir HKU1 PCR Nasal Coronavir NL63 PCR Nasal Coronavir OC43 PCR Nasal Enterovir/Rhinovir PCR Nasal Influenza B PCR Nasal Influenza A PCR Nasal Parainfluen 1 PCR Nasal Parainfluen 2 PCR Nasal Parainfluen 3 PCR Nasal Parainfluen 4 PCR Nasal RSV (PCR) Nasal B.pertussis DNA PCR Nasal C.pneumoniae (PCR) Mike Human Metapneumo PCR Nasal M.pneumoniae (PCR) Nasal SARS-CoV-2 (PCR) Impression and Recommendations - Palliative Care Impression: This is a 59-year-old gentleman who has advanced CHF, has reported ejection fraction of less than 10%, looking to obtain documentation for better prognostication and appropriate interventions. Patient does understand his serious illness, though at this point his goals are still for further intervention for both quality and quantity of life, there remains a DN AR. Patient with severe depression, significant financial and emotional stressors over the last several months, and would benefit from ongoing palliative care support. Palliative care consult to try and define goals of care. Recommendations/Counseling Done: 1. Advanced CHF. Would be helpful to follow-up with scheduled records, for documented echo, as well as considering would be appropriate further interventions for both quality and quantity of care. Patient remains a DN AR, but would accept interventions for cardiac support at this time. Patient with limited health literacy, does understand has serious illness, but is somewhat passive as far as decision making in the context of his current situation. Fo llow-up with hospitalist regarding patient's goals for next steps, may need to move to a higher level of care if patient continues to deteriorate. 2. Depression. Patient with multiple financial and emotional stressors, significant trauma over his lifetime, as well as more acutely over the last se veral months. Patient is quite tearful on and off, would benefit most likely from antidepressant. Patient would like to consider this, is somewhat "pill adverse", but did discuss given what has been happening, may benefit. Patient will consider and will follow up with him tomorrow. 3. Advanced care planning. Patient does have a POLST, with DN AR and limited additional interventions, this was signed on his November hospitalization at [facility], I suspect he was offered at that time transition to hospice, given description of his conversation. Patient this point in time, feels he would still accept interventions for both quality and quantity of time, this has been communicated to the hospitalist. Patient does need DPOA paperwork completed, as well as initiation of further support services like [place] PES, Social Security disability, and assistance with navigating the system. His sister Jaleesa Garza, is available provide short-term support, but patient does need long-term plan. Follow up with social work regarding following up on initiating paper work. If patient meets criteria, patient would benefit from SNF placement for further stabilization of his CHF, increased strength and improved independence. If not, would recommend Home Health referral for RN, PT/[employer] for more successful transition in community. Time Spent: 65 minutes with greater than 50% done in counseling regarding goals of care, disease education and trajectory, coordination of care with social work and hospitalist, and anticipatory guidance. Would recommend getting echocardiogram, to be able to further prognosticate and help with long-term planning.
[2020-05-16] MEDS: SODIUM CHLORIDE FLUSH 0.9% 10 ML SYRINGE IVP SCH ×3 (00:03→17:48)
[2020-05-16] MEDS: FUROSEMIDE 40 MG/4 ML VIAL IVP SCH (08:24)
[2020-05-16] MEDS: METOPROLOL SUCCINATE 50 MG TABLET PO SCH (08:24)
[2020-05-16] MEDS: PANTOPRAZOLE 40 MG TABLET PO SCH (08:24)
[2020-05-16] MEDS: DABIGATRAN 75 MG CAPSULE PO SCH (08:24)
[2020-05-16] MEDS: CLOTRIMAZOLE 1% CREAM 15 GM TUBE TOP SCH (08:26)
--- NOTE | 2020-05-16 12:05 | DISCHARGE SUMMARY ---
Discharge Summary Admit Date: 05/14/20 Discharge Date: 05/16/20 Discharging Provider: Abigail Ba Code Status: Attempt Resuscitation Condition at Discharge: Stable Discharge Disposition: 02 Transfer Acute Care Hosp - DIAGNOSES Admission Diagnoses: CHF exacerbation Atrial fibrillation Renal insufficiency Chronic venous stasis Diabetes mellitus Discharge Diagnoses with Status of Each Condition: CHF exacerbation: Advanced stage: Ejection fraction 10%.Acute presentation Improved Atrial fibrillation: Chronic on Pradaxa Renal insufficiency: Chronic Chronic venous stasis Diabetes mellitus: Chronic - HPI History of Present Illness: Patient is chronically ill 59-year-old male with advanced CHF with an ejection fraction of less than 10%. He was admitted on 14 May 2019 With dyspnea and was found to Be in CHF exacerbation. He was treated with IV diuresis which included Lasix. He also has atrial fibrillation and is on metoprolol and Pradaxa. Presentation is BN P was 1400. The patient had just been discharged from [facility] about a week before presentation. He had a 2-week stay at the hospital there. In conversation with the patient he expressed he would like to have any therapy available that would help with Improving the quality and quantity of life. As a result Dr. Mobley a heavy equipment rental manager at [facility] where the patient gets his cardiology care was contacted. They were agreeable to have the patient transferred to [facility]. However Dr. Mobley highlighted that the patient has a significant history of medical noncompliance and also does not have good family support. As a result this limits further interventions that could be offered which potentially could include a heart transplant under other circumstances. The hospitalist service at [facility] was also contacted and the patient was subsequently transferred. - ALLERGIES Allergies/Adverse Reactions: Allergies Allergy/AdvReac Type Severity Reaction Status Date / Time No Known Drug Allergies Allergy Verified 05/14/20 17:54 - MEDICATIONS Home Medications: Ambulatory Orders Medication Instructions Recorded Confirmed Clotrimazole 1% Cream [Lotrimin 1% 1 applic TOP BID 05/14/20 05/14/20 Cream] Dabigatran [Pradaxa] 150 mg PO BID 05/14/20 05/14/20 Metoprolol Succinate [Toprol Xl] 50 mg PO BID 05/14/20 05/14/20 Miconazole [Oravig] 50 mg BC BID 05/14/20 05/14/20 Pantoprazole [Protonix] 40 mg PO DAILY 05/14/20 05/14/20 Potassium Chloride 10 meq PO DAILY 05/15/20 05/15/20 - PHYSICAL EXAM AT DISCHARGE General Appearance: positive: Alert, Moderate distress, Other (Morbidly obese) Eyes Bilateral: positive: PERRL, EOMI ENT: positive: No signs of dehydration Neck: positive: No JVD, Trachea midline Respiratory: positive: Rhonchi, Other (And positional dyspnea) Cardiovascular: positive: Irregularly irregular Abdomen: positive: Non-tender, No organomegaly, Nml bowel sounds, No distention Back: positive: Nml inspection Skin: positive: Color nml, No rash, Warm, Dry Extremities: positive: Non-tender, Pedal edema Neurologic/Psychiatric: positive: Oriented x3, Mood/affect nml - LABS Result Diagrams: 05/14/20 18:30 05/15/20 04:48 - TIME SPENT Time Spent in Discharge (Minutes): 25
--- NOTE | 2020-05-16 12:23 | Discharge Plan ---
Discharge Plan Problem Reviewed?: Yes Disposition: 02 Transfer Acute Care Hosp Condition: Stable Diet: Cardiac Activity Restrictions: Activity as Tolerated Shower Restrictions: No Assistance Devices: Walker Weight Bearing: Full Weight Health Concerns: You presented to the emergency department with acute respiratory failure with hypoxia. This was thought to be due to acute exacerbation of CHF. You were treated with Lasix 60 mg IV twice daily. You were on Toprol-XL 50 mg twice daily. Your respiratory status improved significantly over your 2-day stay at [facility]. However in the course of your stay you have been experiencing intermittent runs of V. tach which can be life threatening if it persists. You were seen by palliative care to discuss goals of care and you expressed that you were open to intervention if it would help improve your quality of life. As a result we spoke to the hospitalist team and special service representative at [facility] [place] who were agreeable to see you the. Consequently you are being transferred to [facility] for further treatment. You also have atrial fibrillation which was also managed by your Toprol-XL. You are also on the blood thinner Pradaxa. For the dry/flaky appearance of your skin it was recommended that you wash with soap and water pat dry and ensure the toe webbing's dry. Apply Lac-Hydrin to the area of skin on the lower extremities avoiding the toes. You are to do this twice a day. Plan of Treatment: You presented to the emergency department with acute respiratory failure with hypoxia. This was thought to be due to acute exacerbation of CHF. You were treated with Lasix 60 mg IV twice daily. You were on Toprol-XL 50 mg twice daily. Your respiratory status improved significantly over your 2-day stay at [facility]. However in the course of your stay you have been experiencing intermittent runs of V. tach which can be life threatening if it persists. You were seen by palliative care to discuss goals of care and you expressed that you were open to intervention if it would help improve your quality of life. As a result we spoke to the hospitalist team and special service representative at [facility] [place] who were agreeable to see you the. Consequently you are being transferred to [facility] for further treatment. You also have atrial fibrillation which was also managed by your Toprol-XL. You are also on the blood thinner Pradaxa. For the dry/flaky appearance of your skin it was recommended that you wash with soap and water pat dry and ensure the toe webbing's dry. Apply Lac-Hydrin to the area of skin on the lower extremities avoiding the toes. You are to do this twice a day. Care Goals: You presented to the emergency department with acute respiratory failure with hypoxia. This was thought to be due to acute exacerbation of CHF. You were treated with Lasix 60 mg IV twice daily. You were on Toprol-XL 50 mg twice daily. Your respiratory status improved significantly over your 2-day stay at [facility]. However in the course of your stay you have been experiencing intermittent runs of V. tach which can be life threatening if it persists. You were seen by palliative care to discuss goals of care and you expressed that you were open to intervention if it would help improve your quality of life. As a result we spoke to the hospitalist team and special service representative at [facility] [place] who were agreeable to see you the. Consequently you are being transferred to [facility] for further treatment. You also have atrial fibrillation which was also managed by your Toprol-XL. You are also on the blood thinner Pradaxa. For the dry/flaky appearance of your skin it was recommended that you wash with soap and water pat dry and ensure the toe webbing's dry. Apply Lac-Hydrin to the area of skin on the lower extremities avoiding the toes. You are to do this twice a day. No Smoking: If you smoke, Please STOP! Call for help. Follow-up with: IVETTE AMAYA, [Primary Care Provider] -
[2020-05-16 20:54] VITALS: BP 108/71
== END 2020-05-16 21:52 | disposition short-term general hospital (02) | DRG 291 ==
LOC: EDUNIT# → ED 17:35 → MS2 21:07
PROVIDERS: ADMIT Internal Medicine; ATTEND Internal Medicine
DX: I13.0 Hypertensive heart and chronic kidney disease with heart failure and stage 1 through stage 4 chronic kidney disease, or unspecified chronic kidney disease (principal); J96.01 Acute respiratory failure with hypoxia; I50.23 Acute on chronic systolic (congestive) heart failure; I48.20 Chronic atrial fibrillation, unspecified; N18.30 Chronic kidney disease, stage 3 unspecified; E11.22 Type 2 diabetes mellitus with diabetic chronic kidney disease; I87.8 Other specified disorders of veins; G80.9 Cerebral palsy, unspecified; Q80.9 Congenital ichthyosis, unspecified; E11.51 Type 2 diabetes mellitus with diabetic peripheral angiopathy without gangrene; S91.105A Unspecified open wound of left lesser toe(s) without damage to nail, initial encounter; X58.XXXA Exposure to other specified factors, initial encounter; Z66 Do not resuscitate; Z74.09 Other reduced mobility; Z59.8 Other problems related to housing and economic circumstances; Z79.02 Long term (current) use of antithrombotics/antiplatelets; Z79.899 Other long term (current) drug therapy
CPT/HCPCS: 0202U; 36415; 71045; 73630; 80048; 80053; 83690; 83735; 83880; 84484; 85025; 85610; 85651; 93005; 96374; 99222; 99284; 99285; A9270

== ENCOUNTER 2020-05-16 21:51 | Outpatient (CLI) | payer MEDICAID | END 2020-05-16 21:52 | disposition short-term general hospital (02) | LOC: EMS 21:51 | PROVIDERS: ATTEND Surgery | DX: I50.9 Heart failure, unspecified (principal); I48.91 Unspecified atrial fibrillation; I42.9 Cardiomyopathy, unspecified | CPT/HCPCS: A0425; A0426 ==

== ENCOUNTER 2020-07-26 21:00 | Outpatient (CLI) | payer MEDICAID | END 2020-07-26 21:01 | disposition critical access hospital (66) | LOC: EMS 21:00 | PROVIDERS: ATTEND Emergency Medicine | DX: K59.00 Constipation, unspecified (principal); R05 Cough; R11.10 Vomiting, unspecified; R10.30 Lower abdominal pain, unspecified | CPT/HCPCS: A0425; A0427; A0999 ==

== ENCOUNTER 2020-07-26 21:21 | Emergency (ER) | payer MEDICAID ==
--- NOTE | 2020-07-26 21:27 | ED Physician Documentation ---
PD HPI NVD - Stated complaint Stated Complaint: CONSTIPATION, N/V, COUGHING - History obtained from History obtained from: Patient - History of Present Illness Timing - onset: How many days ago (few) Timing - duration: Days (few) Timing - details: Gradual onset, Still present (Patient is having a combination of some lower abdominal crampy pain with poor stool output nausea but also development of cough and dyspnea. Feeling generally ill for couple of days.) Associated symptoms: Fever (just today), Loss of appetite. No: Near syncope / syncope Contributing factors: No: Sick contact, Bad food, Travel Improved by: No: BM (states had firm BM and less stool output for few days. No diarrhea.) Worsened by: Eating Similar symptoms before: Has not had sx before (has had dyspnea related to CHF in the past. No regular abd pains problems.) Recently seen: Emergency Dept (seen last 2 months ago) Review of Systems Constitutional: reports: Chills, Myalgias, Fatigue Nose: reports: Congestion. denies: Rhinorrhea / runny nose Throat: denies: Sore throat Cardiac: reports: Palpitations, Pedal edema (chronic). denies: Chest pain / pressure Respiratory: reports: Dyspnea, Cough (repetitive cough with white sputum production.), Wheezing GI: reports: Abdominal Pain (right lower abd for 2 days, worsening), Nausea, Constipation. denies: Vomiting, Diarrhea : denies: Dysuria, Frequency Skin: denies: Rash Neurologic: reports: Generalized weakness. denies: Altered mental status, Headache PD PAST MEDICAL HISTORY - Past Medical History Cardiovascular: Congestive heart failure, Hypertension, Atrial fibrillation Respiratory: Shortness of breath Neuro: Cerebral palsy Endocrine/Autoimmune: Type 2 diabetes : Indwelling catheter Psych: Depression, Anxiety, Panic attacks Musculoskeletal: Other (right leg / foot ortho problems secondary to cerebral palsy) - Past Surgical History Past Surgical History: Yes Ortho: Other (multiple ortho surgeries) - Present Medications Home Medications: Ambulatory Orders Medication Instructions Recorded Confirmed Clotrimazole 1% Cream [Lotrimin 1% 1 applic TOP BID 05/14/20 05/14/20 Cream] Dabigatran [Pradaxa] 150 mg PO BID 05/14/20 05/14/20 Metoprolol Succinate [Toprol Xl] 50 mg PO BID 05/14/20 05/14/20 Miconazole [Oravig] 50 mg BC BID 05/14/20 05/14/20 Pantoprazole [Protonix] 40 mg PO DAILY 05/14/20 05/14/20 Potassium Chloride 10 meq PO DAILY 05/15/20 05/15/20 - Allergies Allergies/Adverse Reactions: Allergies Allergy/AdvReac Type Severity Reaction Status Date / Time No Known Drug Allergies Allergy Verified 07/26/20 21:37 - Social History Does the pt smoke?: No Smoking Status: Never smoker Does the pt drink ETOH?: No Does the pt have substance abuse?: No - Immunizations Immunizations are current?: Yes - POLST Patient has POLST: Yes PD ED PE NORMAL - Vitals Vital signs reviewed: Yes - General General: Alert and oriented X 3, Well developed/nourished, Other (He appears somewhat pale and diaphoretic with repetitive coughing and a loud choking type sound as he tries to clear thicker sputum that is white-colored.) - HEENT HEENT: Ears normal, Pharynx benign. No: Moist mucous membranes - Neck Neck: Supple, no meningeal sign, No adenopathy - Cardiac Cardiac: No: RRR (irregular and tachycardic rate 150-160s.) - Respiratory Respiratory: No: Clear bilaterally (He has coarse sounds bilaterally but partic ularly in the right base. There are some fine crackles diffusely as well. Scattered expiratory wheezes.) - Abdomen Abdomen: Soft, Non distended, No organomegaly, Other (He is tender in the right lower quadrant to right mid abdomen with some local guarding but no percussion or rebound tenderness.). No: Normal bowel sounds (decreased) - Male Male : Deferred - Rectal Rectal: Deferred - Back Back: No CVA TTP - Derm Derm: No: Normal color (somewhat pale), Warm and dry (diaphoretic initial presentation) - Extremities Extremities: Other (Edema in both legs all the way up above the knees. Chronic stasis changes with purplish colored skin and thickened skin particularly anteriorly on both legs. Symmetric movement.) - Neuro Neuro: Alert and oriented X 3, No motor deficit, Normal speech Eye Opening: Spontaneous Motor: Obeys Commands Verbal: Oriented GCS Score: 15 Results - Vitals Vitals: Vital Signs - 24 hr 03/24/21 03/24/21 03/24/21 21:37 21:42 21:52 Temperature 38.1 C H 38.1 C H 38.2 C H Heart Rate 150 H 150 H 140 H Respiratory 20 20 14 Rate Blood Pressure 133/102 H 133/102 H 114/82 H O2 Saturation 97 97 94 07/26/20 07/26/20 07/26/20 22:04 22:22 22:23 Temperature Heart Rate 169 H 144 H 149 H Respiratory 30 H 16 11 L Rate Blood Pressure 91/74 84/55 L O2 Saturation 94 95 07/26/20 07/26/20 07/26/20 22:30 22:42 23:00 Temperature Heart Rate 142 H 130 H 140 H Respiratory 21 18 16 Rate Blood Pressure 92/67 102/80 O2 Saturation 96 96 07/26/20 07/27/20 07/27/20 23:30 00:31 01:00 Temperature 37.0 C Heart Rate 132 H 152 H 129 H Respiratory 14 15 18 Rate Blood Pressure 79/66 L 78/56 L O2 Saturation 96 100 100 07/27/20 07/27/20 01:30 02:00 Temperature Heart Rate 120 H 124 H Respiratory Rate Blood Pressure 87/56 L 108/89 H O2 Saturation 96 98 Oxygen O2 Source Room air - EKG (time done) 21:28 Rate: Rate (enter#) (162) Rhythm: Atrial fibrillation Intervals: Wide QRS Ischemia: Normal ST segments, Non specific changes. No: ST elevation c/w ischemia, ST depression Compare to prior EKG: Unchanged from prior EKG (similar morphology though RVR on current tracing.) - Labs Labs: Laboratory Tests 07/26/20 07/26/20 07/26/20 21:40 21:40 21:40 WBC 10.6 RBC 4.64 L Hgb 13.2 L Hct 42.6 MCV 91.8 MCH 28.4 MCHC 31.0 L RDW 18.4 H Plt Count 159 MPV 11.4 Neut # (Auto) 9.2 H Lymph # (Auto) 0.7 L [place] # (Auto) 0.6 Eos # (Auto) 0.0 Baso # (Auto) 0.1 Absolute Nucleated RBC 0.00 Nucleated RBC % 0.0 Sodium 134 L Potassium 4.9 Chloride 95 L Carbon Dioxide 22 Anion Gap 17.0 H BUN 21 H Creatinine 1.8 H Estimated GFR (MDRD) 39 L Glucose 83 Lactic Acid 3.6 H* Calcium 9.9 Magnesium 2.0 Total Bilirubin 3.1 H AST 19 ALT 10 Alkaline Phosphatase 66 Troponin I High Sens B-Natriuretic Peptide Total Protein 7.9 Albumin 3.7 Globulin 4.2 Albumin/Globulin Ratio 0.9 L Urine Color Urine Clarity Urine pH Ur Specific [place] Urine Protein Urine Glucose (UA) Urine Ketones Urine Occult Blood Urine Nitrite Urine Bilirubin Urine Urobilinogen Ur Leukocyte Esterase Urine RBC Urine WBC Ur Squamous Epith Cells Urine Bacteria Urine Casts Urine Mucus Urine Culture Comments Nasal Adenovirus (PCR) Nasal B. parapertussis DNA (PCR) Nasal Coronavir 229E PCR Nasal Coronavir HKU1 PCR Nasal Coronavir NL63 PCR Nasal Coronavir OC43 PCR Nasal Enterovir/Rhinovir PCR Nasal Influenza B PCR Nasal Influenza A PCR Nasal Parainfluen 1 PCR Nasal Parainfluen 2 PCR Nasal Parainfluen 3 PCR Nasal Parainfluen 4 PCR Nasal RSV (PCR) Nasal B.pertussis DNA PCR Nasal C.pneumoniae (PCR) Mike Human Metapneumo PCR Nasal M.pneumoniae (PCR) Nasal SARS-CoV-2 (PCR) 07/26/20 07/26/20 07/26/20 21:40 21:40 22:03 WBC RBC Hgb Hct MCV MCH MCHC RDW Plt Count MPV Neut # (Auto) Lymph # (Auto) [place] # (Auto) Eos # (Auto) Baso # (Auto) Absolute Nucleated RBC Nucleated RBC % Sodium Potassium Chloride Carbon Dioxide Anion Gap BUN Creatinine Estimated GFR (MDRD) Glucose Lactic Acid Calcium Magnesium Total Bilirubin AST ALT Alkaline Phosphatase Troponin I High Sens 10.9 B-Natriuretic Peptide 1393 H Total Protein Albumin Globulin Albumin/Globulin Ratio Urine Color Urine Clarity Urine pH Ur Specific [place] Urine Protein Urine Glucose (UA) Urine Ketones Urine Occult Blood Urine Nitrite Urine Bilirubin Urine Urobilinogen Ur Leukocyte Esterase Urine RBC Urine WBC Ur Squamous Epith Cells Urine Bacteria Urine Casts Urine Mucus Urine Culture Comments Nasal Adenovirus (PCR) NOT DETECTED Nasal B. parapertussis DNA (PCR) NOT DETECTED Nasal Coronavir 229E PCR NOT DETECTED Nasal Coronavir HKU1 PCR NOT DETECTED Nasal Coronavir NL63 PCR NOT DETECTED Nasal Coronavir OC43 PCR NOT DETECTED Nasal Enterovir/Rhinovir PCR NOT DETECTED Nasal Influenza B PCR NOT DETECTED Nasal Influenza A PCR NOT DETECTED Nasal Parainfluen 1 PCR NOT DETECTED Nasal Parainfluen 2 PCR NOT DETECTED Nasal Parainfluen 3 PCR NOT DETECTED Nasal Parainfluen 4 PCR NOT DETECTED Nasal RSV (PCR) NOT DETECTED Nasal B.pertussis DNA PCR NOT DETECTED Nasal C.pneumoniae (PCR) NOT DETECTED Mike Human Metapneumo PCR NOT DETECTED Nasal M.pneumoniae (PCR) NOT DETECTED Nasal SARS-CoV-2 (PCR) NOT DETECTED 07/26/20 07/27/20 22:56 00:24 WBC RBC Hgb Hct MCV MCH MCHC RDW Plt Count MPV Neut # (Auto) Lymph # (Auto) [place] # (Auto) Eos # (Auto) Baso # (Auto) Absolute Nucleated RBC Nucleated RBC % Sodium Potassium Chloride Carbon Dioxide Anion Gap BUN Creatinine Estimated GFR (MDRD) Glucose Lactic Acid 2.0 Calcium Magnesium Total Bilirubin AST ALT Alkaline Phosphatase Troponin I High Sens B-Natriuretic Peptide Total Protein Albumin Globulin Albumin/Globulin Ratio Urine Color DARK YELLOW Urine Clarity HAZY Urine pH 5.0 Ur Specific [place] >=1.030 H Urine Protein Urine Glucose (UA) NEGATIVE Urine Ketones NEGATIVE Urine Occult Blood NEGATIVE Urine Nitrite Urine Bilirubin NEGATIVE Urine Urobilinogen Ur Leukocyte Esterase NEGATIVE Urine RBC 0-5 Urine WBC 0-3 Ur Squamous Epith Cells RARE Squamous Urine Bacteria Rare Urine Casts 11-25 Hyaline Casts Urine Mucus Few Strands Urine Culture Comments NOT INDICATED Nasal Adenovirus (PCR) Nasal B. parapertussis DNA (PCR) Nasal Coronavir 229E PCR Nasal Coronavir HKU1 PCR Nasal Coronavir NL63 PCR Nasal Coronavir OC43 PCR Nasal Enterovir/Rhinovir PCR Nasal Influenza B PCR Nasal Influenza A PCR Nasal Parainfluen 1 PCR Nasal Parainfluen 2 PCR Nasal Parainfluen 3 PCR Nasal Parainfluen 4 PCR Nasal RSV (PCR) Nasal B.pertussis DNA PCR Nasal C.pneumoniae (PCR) Mike Human Metapneumo PCR Nasal M.pneumoniae (PCR) Nasal SARS-CoV-2 (PCR) - Rads (name of study) chest xray Radiology: Prelim report reviewed (ill defines infiltrate right lower lung) abd/pelvic CT Radiology: Prelim report reviewed (normal appendix. moderate ascites. Moderate right pleural effusion. No acute intraabd process. ), See rad report PD MEDICAL DECISION MAKING - ED course Complexity details: reviewed results (Chest x-ray did not show an obvious significant CHF pattern. There was some infiltrate reported by radiology in the right lower lobe. There is some scarring present in the fissure that it appears on prior imaging as well. CT abdomen did not show any acute process.), re-evaluated patient (He looks much better with regard to work of breathing. Temperature is improved. Lactate is normalized. However he remains somewhat hypotensive and is still mildly tachycardic with the atrial fibrillation at 110- 120.), considered differential (Abdominal pain, cough, trouble breathing with some fever now as well. Concern for sepsis with exacerbation of his A. fib and CHF. Will search for abdominal process as well as lung.), d/w patient, d/w telesales consultant (I talked with , our hospitalist, who felt the patient was more complicated and would be appropriate for our facility given his cardiomyopathy as well as the current clinical condition requiring really a higher ICU. I contacted the intensive care hospitalist at [facility].) ED course: The patient was given nebulizer treatments which did help his breathing quite a bit. He had much less work of breathing and sputum production after that. He was given metoprolol IV as well to decrease the rate of the atrial fibrillation. It came down from 150s to approximately 110. His blood pressure was a bit lower with those along with some morphine for his abdominal pain. Therefore Lasix was held at this point initially. He does appear ill with fever,, general symptoms, cough and sputum production. No intra-abdominal infectious processes seen on CT scan. There is some effusion in the right base of the lung and some ascites consistent with a CHF. There is a likely infiltrate in the right lung base. Concern for sepsis based on his sepsis screen. Rocephin was given IV. Given his CHF, I opted for Levaquin over Zithromax to decrease his sodium load. BP remained mildly hypotensive, but MAP remained over 65. Subsequently started low dose norepi drip and BP improved to over 100 systolic without worsening his tachycardia. He does appear stable for transfer. - Critical Care Time(min): 40 Time Includes: Direct patient care, Reassess patient, Document care, Coordinate care, Medical consult Data interpretation: Labs, Pulse ox, CXR Procedures excluded from critical care time: EKG Departure - Departure Disposition: 02 Transfer Acute Care Hosp Clinical Impression: Acute on chronic systolic (congestive) heart failure, Atrial fibrillation with RVR, Acute pneumonia, Hypotension, Cardiomyopathy Condition: Stable
[2020-07-26] MEDS ORDERED: ALBUTEROL NEB 2.5 MG/3 ML INH STA ×2 (21:54→22:26)
[2020-07-26] MEDS ORDERED: MORPHINE 2 MG/ML CARPUJECT IVP STA (21:55)
[2020-07-26] MEDS ORDERED: METOPROLOL 5 MG/5 ML VIAL IVP STA (21:55)
[2020-07-26] MEDS ORDERED: ONDANSETRON 4 MG/2 ML VIAL IVP STA (21:56)
[2020-07-26] MEDS ORDERED: cefTRIAXone 1 GM VIAL IVP STA (22:00)
[2020-07-26 22:06] LABS: BASOPHILS # (AUTO) 0.1 10^3/uL (0.0-0.1); BASOPHILS % (AUTO) 0.7 %; EOSINOPHILS % (AUTO) 0.4 %; HCT - HEMATOCRIT 42.6 % (42.0-52.0); HGB - HEMOGLOBIN 13.2 g/dL (14.0-18.0); LYMPHOCYTES # (AUTO) 0.7 10^3/uL (1.5-3.5); LYMPHOCYTES % (AUTO) 6.3 %; MEAN CORPUSCULAR HEMOGLOBIN 28.4 pg (27.0-31.0); MEAN CORPUSCULAR VOLUME 91.8 fL (80.0-94.0); MEAN PLATELET VOLUME 11.4 fL (7.4-11.4); MONOCYTES # (AUTO) 0.6 10^3/uL (0.0-1.0); NEUTROPHILS # (AUTO) 9.2 10^3/uL (1.5-6.6); NEUTROPHILS % (AUTO) 86.3 %; PLT - PLATELET COUNT 159 10^3/uL (130-450); RED BLOOD COUNT 4.64 10^6/uL (4.70-6.10); RED CELL DISTRIBUTION WIDTH 18.4 % (12.0-15.0); WHITE BLOOD COUNT 10.6 x10^3/uL (4.8-10.8)
[2020-07-26] MEDS ORDERED: FUROSEMIDE 40 MG/4 ML VIAL IVP STA (22:06)
[2020-07-26 22:16] LABS: ALBUMIN 3.7 g/dL (3.2-5.5); ALBUMIN/GLOBULIN RATIO 0.9 (1.0-2.2); BILIRUBIN,TOTAL 3.1 mg/dL (0.2-1.0); CALCIUM 9.9 mg/dL (8.5-10.3); CREATININE 1.8 mg/dL (0.6-1.2); POTASSIUM 4.9 mmol/L (3.5-5.0); TOTAL PROTEIN 7.9 g/dL (6.7-8.2)
[2020-07-26 22:20] LABS: LACTIC ACID, VENOUS 3.6 mmol/L (0.5-2.2)
[2020-07-26] MEDS ORDERED: IOVERSOL 320 100 ML VIAL IVP ONE ×2 (22:30→23:18)
[2020-07-26 23:16] LABS: B. PARAPERTUSSIS- RESP PCR PAN NOT DETECTED; B. PERTUSSIS- RESP PCR PANEL NOT DETECTED; C. PNEUMONIAE- RESP PCR PANEL NOT DETECTED; CORONAVIRUS 229E-RESP PCR NOT DETECTED; CORONAVIRUS HKU1-RESP PCR NOT DETECTED; CORONAVIRUS NL63-RESP PCR NOT DETECTED; CORONAVIRUS OC43-RESP PCR NOT DETECTED; HUMAN METAPNEUMOVIRUS NOT DETECTED; INFLUENZA A- RESP PCR PANEL NOT DETECTED; INFLUENZA B - RESP PCR PANEL NOT DETECTED; M. PNEUMONIAE- RESP PCR PANEL NOT DETECTED; PARAINFLUENZA VIRUS 1 NOT DETECTED; PARAINFLUENZA VIRUS 2 NOT DETECTED; PARAINFLUENZA VIRUS 3 NOT DETECTED; PARAINFLUENZA VIRUS 4 NOT DETECTED; RHINOVIRUS/ENTEROVIRUS NOT DETECTED; RSV- RESP PCR PANEL NOT DETECTED; SARS-CoV-2 -RESP PCR PANEL NOT DETECTED
[2020-07-26 23:19] LABS: GLUCOSE, URINE (UA) NEGATIVE (NEGATIVE); KETONES,URINE (UA) NEGATIVE (NEGATIVE); LEUKOCYTE ESTERASE, URINE NEGATIVE (NEGATIVE); OCCULT BLOOD,URINE NEGATIVE (NEGATIVE)
[2020-07-26 23:34] LABS: BILIRUBIN,URINE NEGATIVE (NEGATIVE); CLARITY,URINE HAZY (CLEAR); ICTOTEST,URINE NEGATIVE
[2020-07-26 23:35] LABS: BACTERIA,URINE Rare /HPF (None Seen); MUCUS,URINE Few Strands; RBC,URINE 0-5 /HPF (0-5); SQUAMOUS EPITHELIAL CELL,UR RARE Squamous (<= Few); WBC,URINE 0-3 /HPF (0-3)
[2020-07-26] MEDS ORDERED: SODIUM CHLORIDE 0.9% 250 ML IV STA (23:54)
[2020-07-27] MEDS ORDERED: levoFLOXacin 500 MG/100 ML 500 MG/100 ML BAG IV STA (00:17)
[2020-07-27 02:36] VITALS: BP 105/90
--- NOTE | 2020-07-27 08:09 | XRAY Report ---
PROCEDURE: Chest 1 View X-Ray INDICATIONS: chest pain TECHNIQUE: One view of the chest was acquired. COMPARISON: 05/14/2020 FINDINGS: Surgical changes and devices: None. Lungs and pleura: No pleural effusions or pneumothorax. Mild pulmonary vascular congestion is seen. Ill-defined opacity in right infrahilar region is seen concerning for developing right lower lobe inf iltrate. Mediastinum: Mediastinal contours appear normal. Heart size is enlarged. Bones and chest wall: No suspicious bony lesions. Overlying soft tissues appear unremarkable. IMPRESSION: Cardiomegaly and mild congestion, cannot rule out underlying right infrahilar infiltrate. No discrepancies from preliminary reading. Reviewed by: Virgil Cortez MD on 07/27/2020 8:07 AM PDT Approved by: Virgil Cortez MD on 07/27/2020 8:07 AM PDT Station ID: [id number]
--- NOTE | 2020-07-27 08:38 | CT Report ---
PROCEDURE: Abdomen/Pelvis W INDICATIONS: right lower abd pain; constipated; nausea TECHNIQUE: After the administration of intravenous contrast, 5 mm thick sections acquired from the diaphragms to the symphysis. 2.5 mm thick coronal and sagittal reformats were acquired. Optional 10-minute delay ed imaging may be performed from the kidneys to the bladder. For radiation dose reduction, the follo wing was used: automated exposure control, adjustment of mA and/or kV according to patient size. COMPARISON: Chest radiograph from the same date and 05/14/2020 FINDINGS: Image quality: Excellent. ABDOMEN: Lung bases: Heart size is enlarged, Effusion. Moderate right pleural effusion with adjacent segmental atelectasis in posterior aspect of right lower lobe is seen. Left basilar atelectasis is also noted. Solid organs: Liver is normal in size and enhancement. Gallbladder is distended, no calcified gallst one is seen.. Biliary system is non-dilated. Pancreas enhances normally, without transection. Sple en is enlarged without discrete splenic lesion. No adrenal hematomas. Both kidneys enhance normally , without hydronephrosis. Right kidney appears slightly atrophic. Peritoneum and bowel: Moderate amount of ascites fluid in abdomen and pelvis is seen. Unenhanced nedra l loops demonstrate normal wall thickness and caliber. No peritoneal free air. No discrete abscess c ollection. Appendix is visualized and is within normal limits. Nodes and vessels: No retroperitoneal or mesenteric adenopathy. Aorta and inferior vena cava are no rmal in size and enhancement. Miscellaneous: No ventral hernias. PELVIS: Genitourinary: Bladder wall thickness is normal. Miscellaneous: No inguinal hernias or adenopathy. Bones: Pelvic ring and hip joints appear intact. No vertebral compression fractures. IMPRESSION: 1. Normal appendix. No bowel obstruction. Moderate amount of ascites fluid in abdomen or pelvis. No g ross free air. 2. No calcified gallstone. Gallbladder is distended. No biliary ductal dilatation. 3. Moderate right pleural effusion with adjacent right lung atelectasis. 4. Splenomegaly. 5. Slightly atrophic right kidney. No renal stone or hydronephrosis. No significant discrepancies from preliminary reading. Reviewed by: Virgil Cortez MD on 07/27/2020 8:36 AM PDT Approved by: Virgil Cortez MD on 07/27/2020 8:36 AM PDT Station ID: [id number]
== END 2020-07-27 02:36 | disposition short-term general hospital (02) ==
LOC: EDUNIT# → ED 21:21
DX: I11.0 Hypertensive heart disease with heart failure (principal); I50.23 Acute on chronic systolic (congestive) heart failure; I43 Cardiomyopathy in diseases classified elsewhere; J18.9 Pneumonia, unspecified organism; I48.91 Unspecified atrial fibrillation; Z79.01 Long term (current) use of anticoagulants; I95.9 Hypotension, unspecified; Z20.822 Contact with and (suspected) exposure to COVID-19; R10.31 Right lower quadrant pain; R11.0 Nausea; G80.9 Cerebral palsy, unspecified; E11.9 Type 2 diabetes mellitus without complications
CPT/HCPCS: 0202U; 36415; 71045; 74177; 80053; 81001; 83605; 83735; 83880; 84484; 85025; 87040; 93005; 94640; 96365; 96375; 96376; 99285; 99291; Q9967; 87086

== ENCOUNTER 2020-07-27 02:30 | Outpatient (CLI) | payer MEDICAID | END 2020-07-27 02:31 | disposition short-term general hospital (02) | LOC: EMS 02:30 | PROVIDERS: ATTEND Emergency Medicine | DX: I50.9 Heart failure, unspecified (principal); J18.9 Pneumonia, unspecified organism; I42.9 Cardiomyopathy, unspecified | CPT/HCPCS: A0425; A0426 ==

== ENCOUNTER 2020-09-26 07:02 | Outpatient (CLI) | payer MEDICAID | END 2020-09-26 07:03 | disposition EMS.NT | LOC: EMS 07:02 | DX: Z03.89 Encounter for observation for other suspected diseases and conditions ruled out (principal) ==